=== PATIENT | male | born 1975 | race Hispanic/Latino ===

== ENCOUNTER 2022-12-10 18:10 | Emergency (ER) | payer BC, OTHER ==
[~2022-12-10] VITALS: Ht 167.6 cm; Wt 115.7 kg
[2022-12-10 19:43] VITALS: BP 158/95; PULSE 72; RESP 18
[2022-12-10] MEDS ORDERED: SULF1TAB42 PO (22:05)
[2022-12-10] MEDS ORDERED: IBUP-2070 PO (22:05)
[2022-12-10] MEDS ORDERED: ACETAMINOPHEN WITH CODEINE 1 TAB TAB PO ONE (22:30)
[2022-12-10] MEDS ORDERED: SULFAMETHOX-TMP DS 800/160 TAB PO SCH (22:30)
== END 2022-12-10 22:28 | disposition home or self-care (01) ==
LOC: EDH 18:10
DX: L02.211 Cutaneous abscess of abdominal wall (principal)